=== PATIENT | male | born 1995 | race Caucasian/White ===

== ENCOUNTER 2017-03-28 10:59 | Emergency (ER) | payer OTHER ==
[2017-03-28] MEDS ORDERED: OXYMETAZOLINE HCL 0.05% NASAL SPRAY 15 ML BOTTLE NASL ONE (11:18)
--- NOTE | 2017-03-28 11:21 | ER Document Report ---
ED Medical Screen (RME) - General Chief Complaint: Nose Bleed Stated Complaint: NOSE BLEED Time Seen by Provider: 03/28/17 11:10 Notes: 22-year-old male patient with intermittent nosebleed on the left side of his nostril since yesterday. Does take Excedrin almost every day except past 2 days. No injuries. No past history of nosebleeds. No systemic disease. No reason to suspect clotting or platelet disorders. Has been quite cold with very low humidity the last several days, heating and air up in the house makes it extremely dry and makes anyone at risk of nosebleeds that does not Place Vaseline or some other moisturizing ointment into the nostrils at night. There are some clots in his left nostril and active bleeding. After nose spray will be sprayed copiously into both nostrils, and allow him to pinch off nostrils and go to a room in the back. TRAVEL OUTSIDE OF THE [place] IN LAST 30 DAYS: No - Related Data Allergies/Adverse Reactions: No Known Allergies Allergy (Verified 03/28/17 11:00) Home Medications: Current Home Medications No Home Medications 03/28/17 [History] Past Medical History - Social History Chew tobacco use (# tins/day): No Frequency of alcohol use: Occasional Drug Abuse: None Renal/ Medical History: Denies: Hx Peritoneal Dialysis Physical Exam - Vital signs Vitals: Temp Pulse Resp BP Pulse Ox 98.0 F 84 12 148/94 H 98 03/28/17 11:04 03/28/17 11:04 03/28/17 11:04 03/28/17 11:04 03/28/17 11:04 Course - Vital Signs Vital signs: Temp Pulse Resp BP Pulse Ox 98.0 F 84 12 148/94 H 98 03/28/17 11:04 03/28/17 11:04 03/28/17 11:04 03/28/17 11:04 03/28/17 11:04
[2017-03-28] MEDS ORDERED: LIDOCAINE 2% JELLY 5 ML TUBE ONE (11:44)
[2017-03-28] MEDS ORDERED: COCAINE HCL 4% TOPICAL SOLN 4 ML TP ONE (11:56)
--- NOTE | 2017-03-28 12:36 | ER Document Report ---
ED General - General Chief Complaint: Nose Bleed Stated Complaint: NOSE BLEED Time Seen by Provider: 03/28/17 11:10 Mode of Arrival: Ambulatory Information source: Patient Notes: This is a 22-year-old male that presents to the emergency room with a nosebleed. Patient states that the left nares been bleeding for several days and then he started having some bleeding from the right now. He denies any problems with bleeding. He denies any rashes. He denies any gum bleeding with brushing his teeth. TRAVEL OUTSIDE OF THE [place] IN LAST 30 DAYS: No - HPI Onset: Last week Onset/Duration: Gradual Quality of pain: No pain Severity: None Pain Level: Denies Associated symptoms: denies: Chest pain, Fever, Shortness of breath Exacerbated by: Denies Relieved by: Denies Similar symptoms previously: No Recently seen / treated by doctor: No - Related Data Allergies/Adverse Reactions: No Known Allergies Allergy (Verified 03/28/17 11:00) Home Medications: Current Home Medications No Home Medications 03/28/17 [History] Past Medical History - General Information source: Patient - Social History Smoking Status: Current Every Day Smoker Cigarette use (# per day): Yes Chew tobacco use (# tins/day): No Frequency of alcohol use: Occasional Drug Abuse: None Lives with: Other - Family History: None Patient has suicidal ideation: No Patient has homicidal ideation: No - Medical History Medical History: Negative Renal/ Medical History: Denies: Hx Peritoneal Dialysis Review of Systems - Review of Systems Constitutional: denies: Chills, Fever EENT: See HPI Cardiovascular: No symptoms reported Respiratory: No symptoms reported Gastrointestinal: No symptoms reported Genitourinary: No symptoms reported Male Genitourinary: No symptoms reported Musculoskeletal: No symptoms reported Skin: No symptoms reported Hematologic/Lymphatic: No symptoms reported Neurological/Psychological: No symptoms reported Physical Exam - Vital signs Vitals: Temp Pulse Resp BP Pulse Ox 98.0 F 84 12 148/94 H 98 03/28/17 11:04 03/28/17 11:04 03/28/17 11:04 03/28/17 11:04 03/28/17 11:04 Notes: Physical exam: GENERAL: 22-year-old man, alert and oriented 3, no acute distress HEAD: Atraumatic, normocephalic. EYES: Pupils equal round and reactive to light, extraocular movements intact, sclera anicteric, conjunctiva are normal. ENT: Nose was examined with ENT light and nasal speculum and Caballero suction. Nares patent. Left nare: some bleeding on the left side and Kiesselbach's plexus. Right Nare: no active bleeding on the right nare, although he does have a large nasal polyp. Oropharynx clear without exudates or blood. NECK: Normal range of motion, supple without obvious mass or JVD. SKIN: Warm, Dry, normal turgor, no rashes or lesions noted. No petechiae. Course - Re-evaluation Re-evalutation: 03/28/17 12:34 She was given Afrin nasal spray. Nose was packed temporarily with quick clot. He was advised to compress his nose. The nail was numbed with liquid cocaine. Patient had silver nitrate cauterization to Raheem box on the left. There is no active bleeding currently. We will watch the patient. 03/28/17 20:48 Patient observed several hours in the ER and has had no further bleeding. Will discharge with follow-up in the ENT. - Vital Signs Vital signs: Temp Pulse Resp BP Pulse Ox 97.8 F 78 18 139/94 H 96 03/28/17 15:11 03/28/17 15:11 03/28/17 15:11 03/28/17 15:11 03/28/17 15:11 - Laboratory Result Diagrams: 03/28/17 12:33 Procedures - Nosebleed Procedure Left Time completed: 14:52 Location: Anterior Supplies used: Other - Cauterization with silver nitrate Notes: Nose with no with liquid cocaine 4% Discharge - Discharge Clinical Impression: Epistaxis Condition: Stable Disposition: HOME, SELF-CARE Instructions: Nosebleed Instructions ([facility]) Additional Instructions: Recommendations: I want you to follow-up with an ENT doctor. It appears he may have a nasal polyp in the right nostril. You did receive silver nitrate cauterization to the left. Use the Afrin nasal spray. 2 sprays in each nostril twice daily for the next 3 days. See the nosebleed instructions. Return to the ER for any problems. Note: For work purposes: You did have your nose numbed before the cauterization with liquid cocaine. Follow-up with an ENT Doctor: [facility] [place] [address] [place] [address] Toll Free: Forms: Return to School
[2017-03-28 12:53] LABS: ABSOLUTE EOSINOPHILS # (AUTO) 0.3 10^3/uL (0.0-0.6); ABSOLUTE LYMPHOCYTES (AUTO) 3.8 10^3/uL (0.5-4.7); ABSOLUTE MONOCYTES (AUTO) 0.9 10^3/uL (0.1-1.4); ABSOLUTE NEUT (AUTO) 4.9 10^3/uL (1.7-8.2); BASOPHILS % (AUTO) 0.5 % (0-2); HEMATOCRIT 42.2 % (37.9-51.0); HEMOGLOBIN 14.4 g/dL (13.5-17.0); MEAN CORPUSCULAR HEMOGLOBIN 30.7 pg (27.0-33.4); MEAN CORPUSCULAR HGB CONC 34.1 g/dL (32.0-36.0); MEAN CORPUSCULAR VOLUME 90 fl (80-97); MONOCYTES % (AUTO) 9.1 % (3-13); PLATELET COUNT 249 10^3/uL (150-450); RED BLOOD COUNT 4.68 10^6/uL (4.35-5.55); RED CELL DISTRIBUTION WIDTH 13.3 % (11.5-14.0); SEGMENTED NEUTROPHILS % (AUTO) 49.4 % (42-78); TOTAL CELLS COUNTED % (AUTO) 100 %; WHITE BLOOD COUNT 9.9 10^3/uL (4.0-10.5)
[2017-03-28 12:54] LABS: INTERNATIONAL RATION (INR) 0.88; PROTHROMBIN TIME 12.6 SEC (11.4-15.4)
[2017-03-28 12:55] LABS: PARTIAL THROMBOPLASTIN TIME 33.9 SEC (23.5-35.8)
[2017-03-28 15:12] VITALS: BP 139/94
== END 2017-03-28 15:12 | disposition home or self-care (01) ==
LOC: ER 10:59
DX: R04.0 Epistaxis (principal); J33.9 Nasal polyp, unspecified; F17.210 Nicotine dependence, cigarettes, uncomplicated
CPT/HCPCS: 99283; 36415; 85610; 85025; 85730; 30901; J3490 ×2